=== PATIENT | female | born 1965 | race Caucasian/White ===

== ENCOUNTER 2020-05-29 06:15 | Observation (INO) ==
[2020-05-29] MEDS ORDERED: CeFAZolin Syr 2,000MG/20 ML 2,000 MG/20 ML SYRINGE IVPB ONE (06:32)
[2020-05-29] MEDS ORDERED: Ringers Solution, Lactated 1,000 ML IVC SCH (06:45)
[2020-05-29] MEDS ORDERED: Acetaminophen IV 1,000 MG/100 ML BAG IVPB ONE (07:27)
[2020-05-29] MEDS ORDERED: Hydrocortisone Sodium Succ 100 MG/2 ML VIAL IVP ONE (07:40)
[2020-05-29] MEDS ORDERED: Ondansetron 4 MG/2 ML VIAL IVP PRN ×2 (07:41→12:03)
[2020-05-29] MEDS ORDERED: Promethazine 6.25 MG in Water for inj. (sterile) 20 ML IVPB PRN (07:41)
[2020-05-29] MEDS ORDERED: *HR* FentaNYL (PF) 100 MCG/2 ML VIAL ONE (07:42)
[2020-05-29] MEDS ORDERED: Lidocaine HCL 4 ML Topical Solution (Laryng-O-Jet Kit Sterile Pak) TP ONE (07:43)
[2020-05-29] MEDS ORDERED: *HR* Midazolam HCl 2 MG/2 ML VIAL ONE (07:43)
[2020-05-29] MEDS ORDERED: *HR* Propofol 200 MG/20 ML VIAL IVP ONE (07:43)
[2020-05-29] MEDS ORDERED: Lidocaine -MPF 2% 2 ML VIAL ONE (07:43)
[2020-05-29] MEDS ORDERED: *HR* Succinylcholine 200 MG/10 ML VIAL IVP ONE (07:43)
[2020-05-29] MEDS ORDERED: *HR* Rocuronium Bromide 50 MG/5 ML VIAL ONE (07:46)
[2020-05-29] MEDS ORDERED: Bacitracin 50,000 UNIT, Polymyxin B Sulfate 500,000 UNIT, Sodium Chloride IRRigation 1,... IR ONE (08:15)
[2020-05-29] MEDS ORDERED: *HR* PHENYLEPHRINE 1,000 MCG/10 ML SYRINGE IVP ONE (08:16)
[2020-05-29] MEDS ORDERED: Dexamethasone 4 MG/ML VIAL ONE (08:41)
[2020-05-29] MEDS ORDERED: Ondansetron 4 MG/2 ML VIAL ONE (08:41)
[2020-05-29] MEDS ORDERED: EPHEDrine 50 MG/ML VIAL ONE (09:06)
[2020-05-29] MEDS: *HR* HYDROmorphone PF 0.5 MG/0.5 ML SYRINGE IVP PRN ×4 (09:51→10:10)
[2020-05-29] MEDS ORDERED: NON-FORMULARY MEDICATION 1 EACH EACH (Alendronate Sodium [Fosamax] 70 MG) PO SCH (12:03)
[2020-05-29] MEDS ORDERED: clonazePAM 1 MG TABLET PO PRN (12:03)
[2020-05-29] MEDS ORDERED: Ipratropium/Albuterol Neb 3 ML IH PRN (12:03)
[2020-05-29] MEDS ORDERED: *HR* HYDROcodone/Acet 5/325 mg TABLET PO PRN (12:03)
[2020-05-29] MEDS ORDERED: Naloxone 0.4 MG/ML INJ IVP PRN (12:03)
[2020-05-29] MEDS: *HR* OxyCODONE Immed Rel 5 MG TABLET PO PRN ×2 (13:33→17:58)
[2020-05-29] MEDS: CeFAZolin 2 GM/120 ML BAG IVPB SCH ×2 (17:59→23:19)
[2020-05-29] MEDS: lamoTRIgine 100 MG TABLET PO SCH (20:20)
[2020-05-29] MEDS: Ammonium Lactate 30 APPL/225 GM BOTTLE TP SCH (20:20)
[2020-05-29] MEDS: Ziprasidone 20 MG CAPSULE PO SCH (20:20)
[2020-05-29] MEDS ORDERED: traZODone 50 MG TABLET PO SCH (21:00)
[2020-05-29] MEDS: Ringers Solution, Lactated 1,000 ML IVC SCH ×2 (23:18)
[2020-05-30] MEDS: *HR* OxyCODONE Immed Rel 5 MG TABLET PO PRN ×2 (04:31→10:49)
[2020-05-30] MEDS ORDERED: (Vortioxetine Hydrobromide [Trintellix] 10 MG) PO SCH (09:00)
[2020-05-30] MEDS ORDERED: (Mirabegron [Myrbetriq] 50 MG) PO SCH (09:00)
[2020-05-30] MEDS ORDERED: predniSONE 10 MG TABLET PO SCH (09:00)
[2020-05-30] MEDS ORDERED: Folic Acid 1 MG TABLET PO SCH (09:00)
[2020-05-30] MEDS: Ziprasidone 20 MG CAPSULE PO SCH (10:44)
[2020-05-30] MEDS: Ammonium Lactate 30 APPL/225 GM BOTTLE TP SCH (10:44)
[2020-05-30] MEDS: lamoTRIgine 100 MG TABLET PO SCH (10:44)
[2020-05-30 11:47] VITALS: BP 120/69
[2020-06-03] MEDS ORDERED: *HR* Methotrexate 2.5 MG TABLET PO SCH (09:00)
== END 2020-05-30 14:00 | disposition home or self-care (01) ==
LOC: SAMDAY 06:15 → 3NENU 06:15
PROVIDERS: ADMIT Orthopaedic Surgery Orthopaedic Surgery of the Spine; ATTEND Orthopaedic Surgery Orthopaedic Surgery of the Spine

== ENCOUNTER 2021-06-22 15:25 | Inpatient (IN) ==
[2021-06-22 16:46] LABS: Basophils # 0.1 K/mcL (0.0-0.2); Basophils % 0.4 %; Eosinophils % 0.1 %; Hematocrit 44.7 % (35.3-44.9); Immature Granulocytes % 0.7 % (0-4); Lymphocytes # 2.4 K/mcL (0.6-4.6); Lymphocytes % 14.7 %; Mean Corpuscular HGB Conc 33.6 g/dL (31.6-35.5); Mean Corpuscular Hemoglobin 31.1 pg (28.0-33.3); Mean Corpuscular Volume 92.7 fL (83.0-100.0); Mean Platelet Volume 11.1 fL (9.4-12.4); Monocytes # 1.5 K/mcL (0.0-1.3); Monocytes % 9.1 %; Neutrophils # 12.3 K/mcL (1.6-8.9); Platelet Count 241 K/mcL (140-400); Red Blood Count 4.82 M/mcL (3.82-4.97); Red Cell Distribution Width 11.5 % (11.5-14.5); White Blood Count 16.4 K/mcL (4.3-11.1)
[2021-06-22 16:49] LABS: Alanine Aminotransferase 50 Units/L (7-52); Albumin 4.3 g/dL (3.5-5.7); Albumin/Globulin Ratio 1.1 (1.1-2.2); Alkaline Phosphatase 155 Units/L (34-104); Aspartate Amino Transferase 67 Units/L (13-39); BUN/Creatinine Ratio 12 (6-26); Blood Urea Nitrogen 9 mg/dL (6-20); Calcium 9.7 mg/dL (8.6-10.3); Carbon Dioxide 24 mEq/L (23-29); Chloride 99 mEq/L (98-107); Globulin 3.9 g/dL (2.4-3.5); Glucose 130 mg/dL (70-105); Osmolality,Calculated 272 (280-300); Potassium 4.6 mEq/L (3.5-5.1); Sodium 131 mEq/L (136-145); Total Protein 8.2 g/dL (6.4-8.9); eGFR For African Americans > 60 (> 60); eGFR For Non-African Americans > 60 (> 60)
[2021-06-22 17:01] LABS: INR 1.2; Prothrombin Time 13.8 Seconds (9.4-12.1)
[2021-06-22 17:10] LABS: Influenza A PCR Negative (Negative); Influenza B PCR Negative (Negative); Resp. Syncytial Virus PCR Negative (Negative)
[2021-06-22 17:12] LABS: SARS-CoV-2 by PCR (In House) Positive (Negative)
[2021-06-22] MEDS: Isovue-370 500 ML BOTTLE IVP ONE (18:35)
[2021-06-22] MEDS ORDERED: Acetaminophen 325 MG TABLET PO ONE (18:40)
[2021-06-22] MEDS ORDERED: Benzonatate 100 MG CAPSULE PO STA (19:19)
[2021-06-22] MEDS ORDERED: 0.9 % Sodium Chloride 500 ML IVC ONE (20:39)
[2021-06-22] MEDS ORDERED: Naloxone 0.4 MG/ML INJ IVP PRN (23:16)
[2021-06-22] MEDS ORDERED: Ondansetron 4 MG/2 ML VIAL IVP PRN (23:16)
[2021-06-22] MEDS: Benzonatate 100 MG CAPSULE PO PRN (23:59)
[2021-06-23] MEDS: Ipratropium 1 PUFF INHALER IH SCH ×7 (00:17→23:37)
[2021-06-23] MEDS ORDERED: Ziprasidone 20 MG CAPSULE PO SCH (00:30)
[2021-06-23] MEDS: Acetaminophen 325 MG TABLET PO PRN ×2 (00:30→20:42)
[2021-06-23] MEDS: lamoTRIgine 100 MG TABLET PO SCH ×3 (00:56→20:41)
[2021-06-23] MEDS: clonazePAM 1 MG TABLET PO PRN ×2 (00:57→16:09)
[2021-06-23] MEDS: traZODone 50 MG TABLET PO SCH ×2 (00:58→20:41)
[2021-06-23 06:13] LABS: Basophils % 0.1 %; Hematocrit 39.1 % (35.3-44.9); Hemoglobin 13.3 g/dL (11.5-15.4); Immature Granulocytes % 0.3 % (0-4); Lymphocytes % 11.4 %; Mean Corpuscular Hemoglobin 31.3 pg (28.0-33.3); Mean Platelet Volume 10.4 fL (9.4-12.4); Monocytes # 0.2 K/mcL (0.0-1.3); Monocytes % 1.8 %; Neutrophils # 7.7 K/mcL (1.6-8.9); Platelet Count 151 K/mcL (140-400); Red Blood Count 4.25 M/mcL (3.82-4.97); Red Cell Distribution Width 11.7 % (11.5-14.5); Segmented Neutrophils % 86.4 %; White Blood Count 8.9 K/mcL (4.3-11.1)
[2021-06-23 06:43] LABS: Alanine Aminotransferase 46 Units/L (7-52); Albumin 3.9 g/dL (3.5-5.7); Albumin/Globulin Ratio 1.1 (1.1-2.2); Alkaline Phosphatase 125 Units/L (34-104); Aspartate Amino Transferase 62 Units/L (13-39); BUN/Creatinine Ratio 17 (6-26); Bilirubin,Total 0.7 mg/dL (0.3-1.0); Blood Urea Nitrogen 11 mg/dL (6-20); Calcium 8.9 mg/dL (8.6-10.3); Carbon Dioxide 24 mEq/L (23-29); Chloride 100 mEq/L (98-107); Globulin 3.4 g/dL (2.4-3.5); Glucose 266 mg/dL (70-105); Magnesium 1.5 mg/dL (1.6-2.6); Osmolality,Calculated 279 (280-300); Phosphorous 3.7 mg/dL (2.7-4.5); Potassium 3.3 mEq/L (3.5-5.1); Sodium 130 mEq/L (136-145); Total Protein 7.3 g/dL (6.4-8.9); eGFR For African Americans > 60 (> 60); eGFR For Non-African Americans > 60 (> 60)
[2021-06-23] MEDS: Benzonatate 100 MG CAPSULE PO PRN ×2 (08:02→16:09)
[2021-06-23] MEDS: Folic Acid 1 MG TABLET PO SCH (08:02)
[2021-06-23] MEDS ORDERED: *HR* Methotrexate 2.5 MG TABLET PO SCH (09:00)
[2021-06-23] MEDS: Glycopyrrolate 1 MG TABLET PO SCH ×3 (10:44→20:41)
[2021-06-23] MEDS: MYRBETRIQ 50 MG PO SCH (10:44)
[2021-06-23] MEDS: Cyanocobalamin (B-12) 1,000 MCG TABLET PO SCH (10:50)
[2021-06-23] MEDS: hydrOXYzine pamoate 25 MG CAPSULE PO PRN (16:09)
[2021-06-24] MEDS: Benzonatate 100 MG CAPSULE PO PRN ×3 (03:01→20:18)
[2021-06-24] MEDS: Ipratropium 1 PUFF INHALER IH SCH ×6 (03:04→23:57)
[2021-06-24 06:10] LABS: Basophils % 0.1 %; Eosinophils % 0.1 %; Hematocrit 41.5 % (35.3-44.9); Hemoglobin 13.7 g/dL (11.5-15.4); Immature Granulocytes % 0.4 % (0-4); Lymphocytes # 2.1 K/mcL (0.6-4.6); Lymphocytes % 15.3 %; Mean Corpuscular Volume 93.9 fL (83.0-100.0); Mean Platelet Volume 10.4 fL (9.4-12.4); Monocytes # 1.2 K/mcL (0.0-1.3); Monocytes % 8.6 %; Neutrophils # 10.3 K/mcL (1.6-8.9); Platelet Count 170 K/mcL (140-400); Red Blood Count 4.42 M/mcL (3.82-4.97); Red Cell Distribution Width 11.7 % (11.5-14.5); Segmented Neutrophils % 75.5 %
[2021-06-24 06:13] LABS: White Blood Count 13.7 K/mcL (4.3-11.1)
[2021-06-24] MEDS: Glycopyrrolate 1 MG TABLET PO SCH ×3 (08:49→20:12)
[2021-06-24] MEDS: lamoTRIgine 100 MG TABLET PO SCH ×2 (08:49→20:12)
[2021-06-24] MEDS: Cyanocobalamin (B-12) 1,000 MCG TABLET PO SCH (08:49)
[2021-06-24] MEDS: Folic Acid 1 MG TABLET PO SCH (08:49)
[2021-06-24] MEDS: MYRBETRIQ 50 MG PO SCH (08:50)
[2021-06-24 09:29] LABS: Alanine Aminotransferase 49 Units/L (7-52); Albumin 3.6 g/dL (3.5-5.7); Albumin/Globulin Ratio 1.1 (1.1-2.2); Alkaline Phosphatase 118 Units/L (34-104); Aspartate Amino Transferase 68 Units/L (13-39); BUN/Creatinine Ratio 21 (6-26); Bilirubin,Total 0.4 mg/dL (0.3-1.0); Blood Urea Nitrogen 12 mg/dL (6-20); C-Reactive Protein 40 mg/L (Less than 10); Calcium 8.9 mg/dL (8.6-10.3); Carbon Dioxide 29 mEq/L (23-29); Chloride 98 mEq/L (98-107); Globulin 3.3 g/dL (2.4-3.5); Glucose 151 mg/dL (70-105); Osmolality,Calculated 277 (280-300); Potassium 4.5 mEq/L (3.5-5.1); Sodium 132 mEq/L (136-145); Total Protein 6.9 g/dL (6.4-8.9); eGFR For African Americans > 60 (> 60); eGFR For Non-African Americans > 60 (> 60)
[2021-06-24] MEDS ORDERED: Chloraseptic Spray 177 ML BOTTLE MM PRN (19:28)
[2021-06-24] MEDS: traZODone 50 MG TABLET PO SCH (20:13)
[2021-06-25] MEDS: Saline Nasal Spray 44 ML BOTTLE NS PRN (00:17)
[2021-06-25] MEDS: Melatonin 3 MG TABLET PO PRN (00:17)
[2021-06-25] MEDS: clonazePAM 1 MG TABLET PO PRN ×2 (01:31→18:20)
[2021-06-25 01:40] LABS: Basophils % 0.1 %; Eosinophils % 0.1 %; Hematocrit 39.7 % (35.3-44.9); Hemoglobin 13.3 g/dL (11.5-15.4); Immature Granulocytes % 0.3 % (0-4); Lymphocytes # 2.1 K/mcL (0.6-4.6); Lymphocytes % 18.1 %; Mean Corpuscular HGB Conc 33.5 g/dL (31.6-35.5); Mean Corpuscular Hemoglobin 31.6 pg (28.0-33.3); Mean Corpuscular Volume 94.3 fL (83.0-100.0); Mean Platelet Volume 10.4 fL (9.4-12.4); Monocytes # 0.8 K/mcL (0.0-1.3); Monocytes % 6.6 %; Neutrophils # 8.8 K/mcL (1.6-8.9); Platelet Count 186 K/mcL (140-400); Red Blood Count 4.21 M/mcL (3.82-4.97); Red Cell Distribution Width 11.8 % (11.5-14.5); Segmented Neutrophils % 74.8 %; White Blood Count 11.8 K/mcL (4.3-11.1)
[2021-06-25 01:59] LABS: Alanine Aminotransferase 69 Units/L (7-52); Albumin 3.5 g/dL (3.5-5.7); Alkaline Phosphatase 102 Units/L (34-104); Aspartate Amino Transferase 94 Units/L (13-39); BUN/Creatinine Ratio 20 (6-26); Bilirubin,Total 0.4 mg/dL (0.3-1.0); Blood Urea Nitrogen 9 mg/dL (6-20); C-Reactive Protein 18 mg/L (Less than 10); Carbon Dioxide 28 mEq/L (23-29); Chloride 99 mEq/L (98-107); Globulin 3.4 g/dL (2.4-3.5); Glucose 91 mg/dL (70-105); Osmolality,Calculated 278 (280-300); Sodium 135 mEq/L (136-145); Total Protein 6.9 g/dL (6.4-8.9); eGFR For African Americans > 60 (> 60); eGFR For Non-African Americans > 60 (> 60)
[2021-06-25] MEDS: Ipratropium 1 PUFF INHALER IH SCH ×5 (04:17→20:25)
[2021-06-25] MEDS: lamoTRIgine 100 MG TABLET PO SCH ×2 (09:00→22:36)
[2021-06-25] MEDS: Folic Acid 1 MG TABLET PO SCH (09:01)
[2021-06-25] MEDS: Glycopyrrolate 1 MG TABLET PO SCH ×3 (09:01→22:37)
[2021-06-25] MEDS: MYRBETRIQ 50 MG PO SCH (09:01)
[2021-06-25] MEDS: Cyanocobalamin (B-12) 1,000 MCG TABLET PO SCH (09:01)
[2021-06-25] MEDS: Acetaminophen 325 MG TABLET PO PRN ×2 (09:10→22:41)
[2021-06-25] MEDS: *HR* Enoxaparin 40 MG/0.4 ML SYRINGE SQ SCH (15:44)
[2021-06-25] MEDS: hydrOXYzine pamoate 25 MG CAPSULE PO PRN (16:31)
[2021-06-25] MEDS: Benzonatate 100 MG CAPSULE PO PRN (22:39)
[2021-06-25] MEDS: traZODone 50 MG TABLET PO SCH (23:10)
[2021-06-26] MEDS: Ipratropium 1 PUFF INHALER IH SCH ×7 (00:29→23:08)
[2021-06-26] MEDS: *HR* Enoxaparin 40 MG/0.4 ML SYRINGE SQ SCH (05:23)
[2021-06-26 05:30] LABS: Basophils % 0.1 %; Eosinophils % 0.6 %; Hematocrit 38.8 % (35.3-44.9); Hemoglobin 12.4 g/dL (11.5-15.4); Immature Granulocytes % 0.4 % (0-4); Lymphocytes # 1.8 K/mcL (0.6-4.6); Mean Corpuscular Hemoglobin 30.5 pg (28.0-33.3); Mean Corpuscular Volume 95.3 fL (83.0-100.0); Monocytes # 0.5 K/mcL (0.0-1.3); Monocytes % 8.1 %; Neutrophils # 4.3 K/mcL (1.6-8.9); Platelet Count 160 K/mcL (140-400); Red Blood Count 4.07 M/mcL (3.82-4.97); Red Cell Distribution Width 11.8 % (11.5-14.5); Segmented Neutrophils % 63.8 %; White Blood Count 6.7 K/mcL (4.3-11.1)
[2021-06-26 05:49] LABS: Alanine Aminotransferase 62 Units/L (7-52); Albumin 3.4 g/dL (3.5-5.7); Albumin/Globulin Ratio 1.1 (1.1-2.2); Alkaline Phosphatase 115 Units/L (34-104); Aspartate Amino Transferase 64 Units/L (13-39); BUN/Creatinine Ratio 17 (6-26); Bilirubin,Total 0.7 mg/dL (0.3-1.0); Blood Urea Nitrogen 8 mg/dL (6-20); C-Reactive Protein 43 mg/L (Less than 10); Calcium 8.7 mg/dL (8.6-10.3); Carbon Dioxide 31 mEq/L (23-29); Chloride 98 mEq/L (98-107); Globulin 3.2 g/dL (2.4-3.5); Glucose 90 mg/dL (70-105); Osmolality,Calculated 278 (280-300); Potassium 3.5 mEq/L (3.5-5.1); Sodium 135 mEq/L (136-145); Total Protein 6.6 g/dL (6.4-8.9); eGFR For African Americans > 60 (> 60); eGFR For Non-African Americans > 60 (> 60)
[2021-06-26] MEDS: Glycopyrrolate 1 MG TABLET PO SCH ×3 (09:27→21:20)
[2021-06-26] MEDS: Benzonatate 100 MG CAPSULE PO PRN ×2 (09:27→21:19)
[2021-06-26] MEDS: lamoTRIgine 100 MG TABLET PO SCH ×2 (09:28→21:19)
[2021-06-26] MEDS: Folic Acid 1 MG TABLET PO SCH (09:28)
[2021-06-26] MEDS: Cyanocobalamin (B-12) 1,000 MCG TABLET PO SCH (09:28)
[2021-06-26] MEDS: clonazePAM 1 MG TABLET PO PRN ×2 (09:39→21:19)
[2021-06-26] MEDS: Saline Nasal Spray 44 ML BOTTLE NS PRN ×2 (09:39→21:20)
[2021-06-26] MEDS: traZODone 50 MG TABLET PO SCH (21:19)
[2021-06-26] MEDS: hydrOXYzine pamoate 25 MG CAPSULE PO PRN (21:19)
[2021-06-26] MEDS: Melatonin 3 MG TABLET PO PRN (21:20)
[2021-06-27] MEDS: Ipratropium 1 PUFF INHALER IH SCH ×6 (04:07→23:33)
[2021-06-27] MEDS: Benzonatate 100 MG CAPSULE PO PRN ×3 (04:39→22:20)
[2021-06-27] MEDS: *HR* Enoxaparin 40 MG/0.4 ML SYRINGE SQ SCH (05:54)
[2021-06-27] MEDS: Folic Acid 1 MG TABLET PO SCH (10:41)
[2021-06-27] MEDS: lamoTRIgine 100 MG TABLET PO SCH ×2 (10:41→19:47)
[2021-06-27] MEDS: Cyanocobalamin (B-12) 1,000 MCG TABLET PO SCH (10:42)
[2021-06-27] MEDS: Glycopyrrolate 1 MG TABLET PO SCH ×3 (10:42→19:46)
[2021-06-27] MEDS: traZODone 50 MG TABLET PO SCH (19:46)
[2021-06-27] MEDS: hydrOXYzine pamoate 25 MG CAPSULE PO PRN (19:58)
[2021-06-28] MEDS: Saline Nasal Spray 44 ML BOTTLE NS PRN (00:25)
[2021-06-28] MEDS: Ipratropium 1 PUFF INHALER IH SCH ×2 (03:56→08:18)
[2021-06-28] MEDS: *HR* Enoxaparin 40 MG/0.4 ML SYRINGE SQ SCH (05:08)
[2021-06-28] MEDS: Acetaminophen 325 MG TABLET PO PRN (05:08)
[2021-06-28 05:25] LABS: Basophils % 0.3 %; Eosinophils # 0.1 K/mcL (0.0-0.6); Eosinophils % 0.9 %; Hematocrit 35.7 % (35.3-44.9); Hemoglobin 12.1 g/dL (11.5-15.4); Immature Granulocytes % 0.9 % (0-4); Lymphocytes # 1.6 K/mcL (0.6-4.6); Lymphocytes % 23.4 %; Mean Corpuscular HGB Conc 33.9 g/dL (31.6-35.5); Mean Corpuscular Hemoglobin 31.8 pg (28.0-33.3); Mean Corpuscular Volume 93.9 fL (83.0-100.0); Mean Platelet Volume 10.1 fL (9.4-12.4); Monocytes # 0.6 K/mcL (0.0-1.3); Neutrophils # 4.6 K/mcL (1.6-8.9); Platelet Count 164 K/mcL (140-400); Red Cell Distribution Width 11.5 % (11.5-14.5); Segmented Neutrophils % 66.5 %
[2021-06-28 05:50] LABS: BUN/Creatinine Ratio 12 (6-26); Blood Urea Nitrogen 6 mg/dL (6-20); Calcium 8.7 mg/dL (8.6-10.3); Carbon Dioxide 32 mEq/L (23-29); Chloride 96 mEq/L (98-107); Glucose 103 mg/dL (70-105); Osmolality,Calculated 276 (280-300); Potassium 3.4 mEq/L (3.5-5.1); Sodium 134 mEq/L (136-145); eGFR For African Americans > 60 (> 60); eGFR For Non-African Americans > 60 (> 60)
[2021-06-28 10:25] VITALS: BP 135/79; PULSE 106
[2021-06-28] MEDS: Benzonatate 100 MG CAPSULE PO PRN (10:26)
[2021-06-28] MEDS: lamoTRIgine 100 MG TABLET PO SCH (10:26)
[2021-06-28] MEDS: Glycopyrrolate 1 MG TABLET PO SCH (10:27)
[2021-06-28] MEDS: Cyanocobalamin (B-12) 1,000 MCG TABLET PO SCH (10:27)
[2021-06-28] MEDS: Folic Acid 1 MG TABLET PO SCH (10:27)
[2021-06-28 11:11] VITALS: TEMP 98.6
[2021-06-28 12:07] VITALS: O2SAT 93
== END 2021-06-28 14:17 | disposition home or self-care (01) | DRG 871 ==
LOC: EMEROOARM 15:25 → 3ANU 15:25 → SUATTDRO 21:26 → 3ANU 22:31
PROVIDERS: ADMIT Internal Medicine; ATTEND Hospitalist